=== PATIENT | female | born 1985 | race Caucasian/White ===

== ENCOUNTER 2018-07-25 15:52 | Emergency (ER) | payer OTHER ==
[2018-07-25] MEDS ORDERED: IBUPROFEN 600 MG TAB PO STA (18:13)
[2018-07-25] MEDS ORDERED: ACETAMINOPHEN TAB 500 MG TAB PO STA (18:13)
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
[2018-07-25 20:10] VITALS: BP 104/65; PULSE 74; RESP 17; TEMP 97.6
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
== END 2018-07-25 20:34 | disposition home or self-care (01) ==
LOC: EC 15:52
DX: S16.1XXA Strain of muscle, fascia and tendon at neck level, initial encounter (principal); V49.40XA Driver injured in collision with unspecified motor vehicles in traffic accident, initial encounter; Y92.410 Unspecified street and highway as the place of occurrence of the external cause
CPT/HCPCS: 72050; 99284

== ENCOUNTER → 2022-12-28 | Outpatient (CLI) | payer BC ==
--- NOTE | 2022-12-28 14:55 | US ---
EXAMINATION TYPE: US abdomen limited DATE OF EXAM: 12/28/2022 COMPARISON: EXAMINATION TYPE: US abdomen limited DATE OF EXAM: 12/28/2022 COMPARISON: NONE CLINICAL INDICATION: Female, 37 years old with history of K42.9 UMBILICAL HERNIA; umbilical hernia re sulting from 11 years ago Assess for hernia at location of: umbilicus 2.8x1.0x4.5cm partially reducible umbilical hernia noted. Neck measures 1.6x0.9cm IMPRESSION: Umbilical hernia which is partially reducible by the [employer]x[place] food maker hand. Hernia felt to contain fat. There may be a single loop of bowel within the hernia. This can be further evaluated with CT ab domen hernia protocol if clinically warranted. Real-time scanning was performed by the [place] food maker hand utilizing Valsalva and additional dynamic maneuve rs to assess for hernia.
== END | disposition home or self-care (01) ==
LOC: RADUSWWP 10:14
PROVIDERS: ATTEND Family Medicine
DX: K42.9 Umbilical hernia without obstruction or gangrene (principal)
CPT/HCPCS: 76705